=== PATIENT | male | born 1965 | race Caucasian/White ===

== ENCOUNTER → 2017-07-23 | Outpatient (CLI) | payer SELFPAY ==
[2017-07-23 15:58] LABS: ABSOLUTE BASOPHILS # (AUTO) 0.1 10^3/uL (0.0-0.2); ABSOLUTE EOSINOPHILS # (AUTO) 0.4 10^3/uL (0.0-0.6); ABSOLUTE LYMPHOCYTES (AUTO) 1.9 10^3/uL (0.5-4.7); ABSOLUTE MONOCYTES (AUTO) 0.5 10^3/uL (0.1-1.4); ABSOLUTE NEUT (AUTO) 5.2 10^3/uL (1.7-8.2); BASOPHILS % (AUTO) 0.9 % (0-2); EOSINOPHILS % (AUTO) 4.9 % (0-6); HEMATOCRIT 38.5 % (37.9-51.0); HEMOGLOBIN 12.7 g/dL (13.5-17.0); LYMPHOCYTES % (AUTO) 23.4 % (13-45); MEAN CORPUSCULAR HEMOGLOBIN 29.7 pg (27.0-33.4); MEAN CORPUSCULAR VOLUME 90 fl (80-97); MONOCYTES % (AUTO) 5.7 % (3-13); PLATELET COUNT 219 10^3/uL (150-450); RED BLOOD COUNT 4.28 10^6/uL (4.35-5.55); RED CELL DISTRIBUTION WIDTH 16.8 % (11.5-14.0); SEGMENTED NEUTROPHILS % (AUTO) 65.1 % (42-78); TOTAL CELLS COUNTED % (AUTO) 100 %
--- NOTE | 2017-07-23 16:11 | RADIOLOGY REPORT (SQ) ---
EXAM DESCRIPTION: ABDOMEN 2 VIEWS COMPLETED DATE/TIME: 07/23/2017 3:00 pm REASON FOR STUDY: GENERALIZED ABDOMINAL PAIN R10.84 GENERALIZED ABDOMINAL PAIN COMPARISON: None. NUMBER OF VIEWS: Two views. TECHNIQUE: Supine and erect/decubitus radiographic images of the abdomen acquired. LIMITATIONS: None. FINDINGS: FREE AIR: None. No abnormal gas collections. LUNG BASES: Clear. BOWEL GAS PATTERN: Nonobstructive pattern. No dilated loops or air fluid levels. CALCIFICATIONS: No suspicious calcifications. SOFT TISSUES: No gross mass or suggestion of organomegaly. HARDWARE: None in the abdomen. BONES: No acute fracture. No worrisome bone lesions. OTHER: No other significant finding. IMPRESSION: NO RADIOGRAPHIC EVIDENCE FOR ACUTE ABDOMINAL DISEASE. TECHNICAL DOCUMENTATION: JOB ID: [id number] [employer]- All Rights Reserved
[2017-07-23 16:18] LABS: ALANINE AMINOTRANSFERASE 28 U/L (21-72); ALBUMIN 3.6 g/dL (3.5-5.0); ALKALINE PHOSPHATASE 60 U/L (38-126); ANION GAP 10 (5-19); ASPARTATE AMINO TRANSFERASE 26 U/L (17-59); BILIRUBIN,DIRECT 0.4 mg/dL (0.0-0.4); BILIRUBIN,TOTAL 0.8 mg/dL (0.2-1.3); BLOOD UREA NITROGEN 18 mg/dL (7-20); CALCIUM 9.1 mg/dL (8.4-10.2); CARBON DIOXIDE 24 mmol/L (22-30); CHLORIDE 107 mmol/L (98-107); GLUCOSE 101 mg/dL (75-110); POTASSIUM 4.1 mmol/L (3.6-5.0); SODIUM 140.9 mmol/L (137-145)
[2017-07-23 16:43] LABS: LIPASE 6555.6 U/L (23-300)
== END ==
LOC: OD 14:35
PROVIDERS: ATTEND Nurse Practitioner Acute Care
DX: R10.84 Generalized abdominal pain (principal)
CPT/HCPCS: 36415; 74019; 80053; 83690; 85025

== ENCOUNTER → 2018-07-04 | Outpatient (CLI) | payer BC ==
--- NOTE | 2018-07-04 11:27 | RADIOLOGY REPORT (SQ) ---
EXAM DESCRIPTION: PARANASAL SINUSES COMPLETED DATE/TIME: 07/04/2018 11:15 am REASON FOR STUDY: CHRONIC SINUSITIS J32.9 CHRONIC SINUSITIS, UNSPECIFIED COMPARISON: None. NUMBER OF VIEWS: Three views. TECHNIQUE: Images of the paranasal sinuses acquired. LIMITATIONS: None. FINDINGS: ORBITS: No fracture. No foreign body. SINUSES: No mucosal thickening. No air fluid levels. FACIAL BONES: No fracture. OTHER: No other significant finding. IMPRESSION: NO FOREIGN BODY OR FRACTURE. NO PLAIN RADIOGRAPHIC EVIDENCE FOR SINUS DISEASE. TECHNICAL DOCUMENTATION: JOB ID: [id number] [employer]- All Rights Reserved Reading location - IP/workstation name: [email or web address]
== END ==
LOC: OD 10:57
PROVIDERS: ATTEND Family Medicine
DX: J32.9 Chronic sinusitis, unspecified (principal)
CPT/HCPCS: 70220

== ENCOUNTER 2019-02-15 15:21 | Emergency (ER) | payer BC ==
--- NOTE | 2019-02-15 16:31 | ER Document Report ---
ED Medical Screen (RME) - General Chief Complaint: Chest Pain Stated Complaint: CHEST PAIN Time Seen by Provider: 02/15/19 16:25 Primary Care Provider: BEN CASTILLO DO [Primary Care Provider] - Follow up as needed Mode of Arrival: Ambulatory Information source: Patient Notes: 53-year-old male presented to ED for complaint of chest pain for the last week and gradually getting worse since then. Wall. He states he is short of breath and is been to sleep in the recliner. He states she also has edema in both feet and legs he states he also has pain down the left arm no pain in his neck. He states he does have damage and C4-5-6 and they want to do a fusion and he is holding off. Patient is alert oriented respirations regular and unlabored speaking in full sentences. I have greeted and performed a rapid initial assessment of this patient. A comprehensive ED assessment and evaluation of the patient, analysis of test results and completion of medical decision making process will be conducted by an additional ED providers. TRAVEL OUTSIDE OF THE [place] IN LAST 30 DAYS: No - Related Data Allergies/Adverse Reactions: No Known Allergies Allergy (Verified 02/15/19 15:27) Physical Exam - Vital signs Vitals: Temp Pulse Resp BP Pulse Ox 98.8 F 44 L 18 191/92 H 96 02/15/19 15:40 02/15/19 15:40 02/15/19 15:40 02/15/19 15:40 02/15/19 15:40 Course - Vital Signs Vital signs: Temp Pulse Resp BP Pulse Ox 98.8 F 44 L 18 191/92 H 96 02/15/19 15:40 02/15/19 15:40 02/15/19 15:40 02/15/19 15:40 02/15/19 15:40 Doctor's Discharge - Discharge Referrals: BEN CASTILLO DO [Primary Care Provider] - Follow up as needed
[2019-02-15] MEDS ORDERED: ASPIRIN 81 MG TABLET, CHEWABLE PO ONE (16:33)
[2019-02-15 17:02] LABS: ABSOLUTE BASOPHILS # (AUTO) 0.1 10^3/uL (0.0-0.2); ABSOLUTE EOSINOPHILS # (AUTO) 0.4 10^3/uL (0.0-0.6); ABSOLUTE LYMPHOCYTES (AUTO) 1.3 10^3/uL (0.5-4.7); ABSOLUTE MONOCYTES (AUTO) 0.4 10^3/uL (0.1-1.4); ABSOLUTE NEUT (AUTO) 4.1 10^3/uL (1.7-8.2); BASOPHILS % (AUTO) 1.2 % (0-2); EOSINOPHILS % (AUTO) 5.7 % (0-6); HEMATOCRIT 40.9 % (37.9-51.0); HEMOGLOBIN 13.5 g/dL (13.5-17.0); LYMPHOCYTES % (AUTO) 21.3 % (13-45); MEAN CORPUSCULAR HEMOGLOBIN 32.1 pg (27.0-33.4); MEAN CORPUSCULAR HGB CONC 33.1 g/dL (32.0-36.0); MEAN CORPUSCULAR VOLUME 97 fl (80-97); MONOCYTES % (AUTO) 6.7 % (3-13); PLATELET COUNT 189 10^3/uL (150-450); RED BLOOD COUNT 4.22 10^6/uL (4.35-5.55); RED CELL DISTRIBUTION WIDTH 13.5 % (11.5-14.0); SEGMENTED NEUTROPHILS % (AUTO) 65.1 % (42-78); TOTAL CELLS COUNTED % (AUTO) 100 %; WHITE BLOOD COUNT 6.3 10^3/uL (4.0-10.5)
[2019-02-15 17:13] LABS: ALBUMIN 3.9 g/dL (3.5-5.0); ALKALINE PHOSPHATASE 64 U/L (38-126); ANION GAP 8 (5-19); ASPARTATE AMINO TRANSFERASE 23 U/L (17-59); BILIRUBIN,DIRECT 0.3 mg/dL (0.0-0.4); BILIRUBIN,TOTAL 1.4 mg/dL (0.2-1.3); BLOOD UREA NITROGEN 20 mg/dL (7-20); CALCIUM 9.4 mg/dL (8.4-10.2); CARBON DIOXIDE 25 mmol/L (22-30); CHLORIDE 108 mmol/L (98-107); CREATINE KINASE 101 U/L (55-170); GLUCOSE 100 mg/dL (75-110); POTASSIUM 4.5 mmol/L (3.6-5.0); TOTAL PROTEIN 6.4 g/dL (6.3-8.2)
[2019-02-15 17:29] LABS: CREATINE KINASE MB 0.96 ng/mL (<4.55); TROPONIN I < 0.012 ng/mL
--- NOTE | 2019-02-15 17:51 | RADIOLOGY REPORT (SQ) ---
EXAM DESCRIPTION: CHEST 2 VIEWS COMPLETED DATE/TIME: 02/15/2019 5:42 pm REASON FOR STUDY: pedal edema COMPARISON: None. EXAM PARAMETERS: NUMBER OF VIEWS: two views TECHNIQUE: Digital Frontal and Lateral radiographic views of the chest acquired. RADIATION DOSE: NA LIMITATIONS: none FINDINGS: LUNGS AND PLEURA: There are small bilateral pleural effusions with mild bibasilar atelecta sis. No pneumothorax. MEDIASTINUM AND HILAR STRUCTURES: No masses or contour abnormalities. HEART AND VASCULAR STRUCTURES: The heart is mildly enlarged. There is mild vascular congestion. BONES: No acute findings. HARDWARE: None in the chest. IMPRESSION: Mild cardiomegaly and mild vascular congestion. Small bilateral pleural effusions with mild bibasilar atelectasis. TECHNICAL DOCUMENTATION: JOB ID: [id number] [employer]- All Rights Reserved Reading location - IP/workstation name: [email or web address]
--- NOTE | 2019-02-15 18:38 | EKG REPORT ---
SEVERITY:- ABNORMAL ECG - SINUS BRADYCARDIA PROBABLE POSTERIOR INFARCT : Confirmed by: Claudio Woo 15-Feb-2019 18:37:45
[2019-02-15] MEDS ORDERED: NITROGLYCERIN 2% OINTMENT 1 GM PACKET TP ONE (20:36)
[2019-02-15] MEDS ORDERED: FUROSEMIDE INJ/PF 40 MG/4 ML SDV IV ONE (20:36)
--- NOTE | 2019-02-15 20:39 | ER Document Report ---
ED Cardiac - General Chief Complaint: Chest Pain Stated Complaint: CHEST PAIN Time Seen by Provider: 02/15/19 16:25 Primary Care Provider: HEYDI KEYES MD [ACTIVE STAFF] - 02/17/19 BEN CASTILLO DO [Primary Care Provider] - Follow up as needed Mode of Arrival: Ambulatory Notes: Patient is a 53-year-old male that comes emergency department for chief complaint of shortness of breath when lying flat and on exertion, intermittent discomfort in his chest, and swelling on both legs. Symptoms have been worsening for about 1 week now. He denies diagnosed history of congestive heart failure, he is not on a diuretic. He denies history of [place]. Past medical history includes morbid obesity, hypertension, hyperlipidemia, type 2 diabetes, GERD, and chronic neck/back pain. 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 TRAVEL OUTSIDE OF THE [place] IN LAST 30 DAYS: No - Related Data Allergies/Adverse Reactions: No Known Allergies Allergy (Verified 02/15/19 15:27) Past Medical History - General Information source: Patient - Social History Smoking Status: Never Smoker Chew tobacco use (# tins/day): No Frequency of alcohol use: None Drug Abuse: None Lives with: Family Family History: Reviewed & Not Pertinent Patient has suicidal ideation: No Patient has homicidal ideation: No - Past Medical History Cardiac Medical History: Reports: Hx Hypercholesterolemia, Hx Hypertension GI Medical History: Reports: Hx Gastroesophageal Reflux Disease Musculoskeletal Medical History: Reports Hx Arthritis Review of Systems - Review of Systems Constitutional: No symptoms reported EENT: No symptoms reported Cardiovascular: See HPI Respiratory: See HPI Gastrointestinal: No symptoms reported Genitourinary: No symptoms reported Male Genitourinary: No symptoms reported Musculoskeletal: No symptoms reported Skin: No symptoms reported Hematologic/Lymphatic: No symptoms reported Neurological/Psychological: No symptoms reported Physical Exam - Vital signs Vitals: Temp Pulse Resp BP Pulse Ox 98.8 F 44 L 18 191/92 H 96 02/15/19 15:40 02/15/19 15:40 02/15/19 15:40 02/15/19 15:40 02/15/19 15:40 - Notes Notes: GENERAL: Alert, interacts well. No acute distress. HEAD: Normocephalic, atraumatic. EYES: Pupils equal, round, and reactive to light. Extraocular movements intact. ENT: Oral mucosa moist, tongue midline. Oropharynx unremarkable. Airway patent. LUNGS: Clear to auscultation bilaterally, no wheezes, rales, or rhonchi. No respiratory distress. HEART: Bradycardia, normal rhythm. No murmur ABDOMEN: Soft, non-tender. Non-distended. Bowel sounds present in all 4 quadrants. GENITOURINARY: Deferred EXTREMITIES: Moves all 4 extremities spontaneously. 1+ pitting edema bilaterally, normal distal neurovascular exam. BACK: no cervical, thoracic, lumbar midline tenderness. No saddle anesthesia, normal distal neurovascular exam. Moves all extremities in full range of motion. NEUROLOGICAL: Alert and oriented x3. Normal speech. Cranial nerves II through XII grossly intact. PSYCH: Normal affect, normal mood. SKIN: Warm, dry, normal turgor. No rashes or lesions noted. Course - Re-evaluation Re-evalutation: Patient has 1+ pitting edema bilaterally, dyspnea on exertion, hypertension on my initial evaluation, and bradycardia. He states the bradycardia is chronic. He does not have a diagnosis of congestive heart failure. There is some edema on the chest x-ray but he does not have overt rales on exam. BNP is elevated at approximately 1000. Troponin negative. CBC, chemistry nonspecific. Because of patient's abnormal vital signs, symptoms, lower extremity edema, undiagnosed congestive heart failure evidence, I recommended admission for diuresis and work-up. Patient declined. He states he wants to leave. After discussion patient did agree to treatment initially and recycle troponin. Second troponin is negative. Patient has not had chest pain anytime recently. Patient had an excellent diuresis after 40 mg of IV Lasix, he had almost 3 L output. His blood pressure did go down, he did have nitroglycerin placed as well. He states his breathing is much improved, here he feels much better, he is very satisfied and states he is glad he stayed but he still request discharge at this time. He does request cardiology referral and states he will follow-up with his primary care. He does state he will return if he worsens in any way. He promises to follow-up within 48 hours. Patient stable at time of discharge. - Vital Signs Vital signs: Temp Pulse Resp BP Pulse Ox 98.5 F 44 L 12 146/89 H 97 02/15/19 22:44 02/15/19 15:40 02/15/19 22:02 02/15/19 22:02 02/15/19 22:02 - Laboratory Result Diagrams: 02/15/19 16:40 02/15/19 16:40 Laboratory results interpreted by me: 02/15/19 02/15/19 02/15/19 16:40 16:40 16:40 RBC 4.22 L Chloride 108 H Total Bilirubin 1.4 H NT-Pro-B Natriuret Pep 1090 H - EKG Interpretation by Me Additional EKG results interpreted by me: EKG shows sinus bradycardia at a rate of 47, flattened T wave in lead III, normal axis, no T wave inversions or ST segment changes in consecutive leads. QTC of 425. Discharge - Discharge Clinical Impression: Pulmonary vascular congestion, Shortness of breath, Swelling of both lower extremities Condition: Stable Disposition: HOME, SELF-CARE Additional Instructions: The x-ray of your heart shows heart enlargement and fluid on your lungs, this is consistent with your laboratory work-up as well. There appears to be undiagnosed congestive heart failure. You have decided to follow-up closely instead of being admitted tonight, please call the listed referral, take your prescribed medications, and return if you worsen in any way including worsening shortness of breath, chest pain, or any other concerning or worsening symptoms. Prescriptions: Furosemide [Lasix 20 mg Tablet] 20 mg PO QAM #30 tablet Potassium Chloride 10 meq PO DAILY #30 capsule.er Referrals: BEN CASTILLO DO [Primary Care Provider] - Follow up as needed HEYDI KEYES MD [ACTIVE STAFF] - 02/17/19
[2019-02-15 22:24] VITALS: BP 146/89
== END 2019-02-15 22:45 | disposition home or self-care (01) ==
LOC: ER 15:21
DX: R09.89 Other specified symptoms and signs involving the circulatory and respiratory systems (principal); R06.02 Shortness of breath; M79.89 Other specified soft tissue disorders; R07.9 Chest pain, unspecified; I10 Essential (primary) hypertension
CPT/HCPCS: 93005; 36415; 82553; 82550; 85025; 80053; 84484; 83880; 71046; 93010; J1940; 96374; 99285

== ENCOUNTER → 2019-05-12 | Outpatient (CLI) | payer BC | LOC: OD 13:59 | PROVIDERS: ATTEND Nurse Practitioner Acute Care | DX: M25.531 Pain in right wrist (principal) | CPT/HCPCS: 36415; 84550; 86430 ==